=== PATIENT | male | born 2000 | race Caucasian/White ===

== ENCOUNTER 2024-12-13 12:53 | Emergency (ER) | payer OTHER, SELFPAY ==
[2024-12-13] VITALS (15 sets, daily range): BP systolic 119–133; BP diastolic 83–98; PULSE 81–115; TEMP 36.9; O2SAT 98–100; BMI 37.1
--- NOTE | 2024-12-13 13:02 | ECG_ITS ---
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
--- NOTE | 2024-12-13 13:02 | XR_ITS ---
[facility] [place] [id number] Patient Name: ALISSA MILAN MRN: [id number] date: 2000 Sex: M Assigned Patient Location: ED.MAIN Current Patient Location: ED.MAIN Accession/Order Number: [id number] Exam Date: 12/13/2024 13:35 Report Date: 12/13/2024 13:51 At the request of: OFELIA DRAPER MD Procedure: XR chest 1V Single view chest: CLINICAL HISTORY: heart racing COMPARISON: None FINDINGS: The heart is normal in size. The lungs are clear. The pulmonary vasculature is normal. Mediastinum and hilar regions are unremarkable. No pleural effusions are seen. Visualized bones are intact. XR/XR chest 1V IMPRESSION: NO ACUTE PROCESS. Impression dictated by: Gerardo Rudd Jr.OBrandon 12/13/2024 1:51 PM Dictation Location: [id number] Electronically authenticated by: [id number] Y Date: 12/13/2024 13:51
[2024-12-13 13:28] LABS: Hematocrit 49.2 % (42.0-54.0); Hemoglobin 16.9 g/dL (14.0-18.0); Immature Granulocytes Abs Auto 0.03 10^3/uL (0.00-0.03); Immature Granulocytes Pct Auto 0.4 % (0.0-0.5); Lymphocytes Absolute Auto 2.1 10^3/uL (1.2-3.8); Mean Corpuscular HGB Conc 34.3 g/dL (29.9-35.2); Mean Corpuscular Hemoglobin 29.2 pg (25.9-34.0); Mean Corpuscular Volume 85.1 fL (80.0-94.0); Platelet Count 330 10^3/uL (150-450); Red Blood Count 5.78 10^6/uL (4.70-6.10); White Blood Count 8.5 10^3/uL (4.0-11.0)
[2024-12-13 13:43] LABS: INR 0.97; Prothrombin Time 10.3 sec (9.0-11.6)
[2024-12-13] MEDS: 0.9 % SODIUM CHLORIDE 1,000 ML 1000 ML IV (13:45)
[2024-12-13 13:54] LABS: Alanine Aminotransferase 46 U/L (16-63); Albumin Globulin Ratio 1.1; Albumin Level 4.5 g/dL (3.4-5.0); Alkaline Phosphatase 74 U/L (46-116); Anion Gap 15.9; Aspartate Amino Transferase 23 U/L (15-37); Blood Urea Nitrogen 17.0 mg/dL (7.0-18.0); Calcium 9.4 mg/dL (8.5-10.1); Carbon Dioxide 25.9 mmol/L (21.0-32.0); Chloride 102 mmol/L (98-107); Estimated GFR (African America >60 (>=60 mL/min/1.73m^2); Estimated GFR (Non-African Ame >60 (>=60 mL/min/1.73m^2); Globulin 4.2 g/dL; Glucose 87 mg/dL (74-106); Magnesium 1.8 mg/dL (1.8-2.4); Potassium 3.8 mmol/L (3.5-5.1); Sodium 140 mmol/L (136-145); Total Protein 8.7 g/dL (6.4-8.2)
--- NOTE | 2024-12-13 14:15 | ED_ITS ---
HPI - Arrhythmia/Palpitations General Chief Complaint: Arrhythmia/Palpitations Stated Complaint: HEART PALPITATIONS Time Seen by Provider: 12/13/24 13:02 Source: patient Mode of arrival: walk-in History of Present Illness HPI narrative: The patient is coming to the ER with a complaint of feeling his heart racing since yesterday, was doing some yard work yesterday to his home and he admitted that he does not drink enough water usually. He mentioned that he started feeling his heart racing The patient does not feel his heart racing all the time but he sometimes feels an extra beat There is no nausea no vomiting no chest pain no abdominal pain he felt squeezing his heart when he was having the heart racing as he mentioned. The patient also has been going through a lot of stress at home apparently they are trying to sell the house that he was working on yesterday Related Data Home Medications ?Medication ?Instructions ?Recorded ?Confirmed No Known Home Medications 12/13/2405/08 Allergies Allergy/AdvReac Type Severity Reaction Status Date / Time shellfish derived Allergy Hives Verified 12/13/24 13:05 Sulfa (Sulfonamide Allergy Hives Verified 12/13/24 13:05 Antibiotics) Review of Systems ROS Status of ROS 10 or more systems reviewed and unremark able except as noted in history and below PFSH PFSH Social History Little interest or pleasure in doing things: not at all Feeling down, depressed, or hopeless: not at all Exam Narrative Exam Narrative: Nurses notes and vital signs reviewed and patient is not hypoxic. General: Well-appearing and in no apparent distress. Skin: Warm, dry, no pallor noted. No rash. Head: Normocephalic, atraumatic. Neck: Supple, non-tender. Eye: Pupils are equal, round and EOMI. No scleral icterus. Ears, Nose, Mouth, and Throat: TM are clear, no nasal mucosal hypertrophy. Oral mucosa is moist, no posterior oropharynx erythema, uvula is mid-line Cardiovascular: Regular Rate and Rhythm without murmur, gallop or rub. Respiratory: No accessory muscle use or respiratory distress. Lungs are clear to auscultation, no wheezing, rales or rhonchi Chest Wall: no tenderness Back: No midline thoracic or lumbar vertebral tenderness. No CVA tenderness Musculoskeletal: normal ROM, no calf or popliteal tenderness, no lower extremity edema/swelling GI: Abdomen is soft, non-distended. Normal bowel sounds. No masses appreciated. No tenderness to palpation. No rebound, guarding, or rigidity noted. Neurological: A&O x4. No cranial nerve dysfunction observed. No truncal ataxia. Moves all extremities. Sensation intact. Psychiatric: Cooperative and interactive. Normal mood and affect. Constitutional Vital Signs, click to edit/add: Last Vital Signs Temp 98.5 F 12/13/24 13:05 Pulse 97 H 12/13/24 13:05 Resp 18 12/13/24 13:05 BP 124/88 12/13/24 13:05 Pulse Ox 99 12/13/24 13:05 O2 Del Method Room Air 12/13/24 13:05 Course Vital Signs Vital signs: Vital Signs Temperature 98.5 F 12/13/24 13:05 Pulse Rate 97 H 12/13/24 13:05 Respiratory Rate 18 12/13/24 13:05 Blood Pressure 124/88 12/13/24 13:05 Pulse Oximetry 99 12/13/24 13:05 Oxygen Delivery Method Room Air 12/13/24 13:05 Temperature 98.5 F 12/13/24 13:05 Pulse Rate 97 H 12/13/24 13:05 Respiratory Rate 18 12/13/24 13:05 Blood Pressure 124/88 12/13/24 13:05 Pulse Oximetry 99 12/13/24 13:05 Oxygen Delivery Method Room Air 12/13/24 13:05 MDM - Arrhythmia/Palpitations MDM Narrative Medical decision making narrative: The patient EKG was showing sinus arrhythmia with heart rate of [address] elevation or depression Potassium, magnesium as well as the rest of the chemistry were within normal and the patient CBC is well The patient also had a negative troponin He is not a smoker and his presentation right now could be secondary to mild dehydration he was feeling much better after being treated with the IV fluid Patient instructed to rest for the next few days and to follow-up with his primary care doctor for further evaluation In case of repeated symptoms he is to come back to the ER Lab Data Labs: Lab Results 12/13/24 Range/Units 13:14 WBC 8.5 (4.0-11.0) 10^3/uL RBC 5.78 (4.70-6.10) 10^6/uL Hgb 16.9 (14.0-18.0) g/dL Hct 49.2 (42.0-54.0) % MCV 85.1 (80.0-94.0) fL MCH 29.2 (25.9-34.0) pg MCHC 34.3 (29.9-35.2) g/dL RDW 13.1 (11.0-15.0) % Plt Count 330 (150-450) 10^3/uL MPV 9.5 (9.5-13.5) fL Neut % (Auto) 66.9 (43.0-75.0) % Lymph % (Auto) 24.4 (20.5-60.0) % [place] % (Auto) 5.5 (1.7-12.0) % Eos % (Auto) 2.0 (0.9-7.0) % Baso % (Auto) 0.8 (0.2-2.0) % Neut # (Auto) 5.7 (1.4-6.5) 10^3/uL Lymph # (Auto) 2.1 (1.2-3.8) 10^3/uL [place] # (Auto) 0.5 (0.3-0.8) 10^3/uL Eos # (Auto) 0.2 (0.0-0.7) 10^3/uL Baso # (Auto) 0.1 (0.0-0.1) 10^3/uL Abs Immat Gran (auto) 0.03 (0.00-0.03) 10^3/uL Imm/Tot Granulo (auto) 0.4 (0.0-0.5) % PT 10.3 (9.0-11.6) sec INR 0.97 Sodium 140 (136-145) mmol/L Potassium 3.8 (3.5-5.1) mmol/L Chloride 102 (98-107) mmol/L Carbon Dioxide 25.9 (21.0-32.0) mmol/L Anion Gap 15.9 BUN 17.0 (7.0-18.0) mg/dL Creatinine 0.98 (0.70-1.30) mg/dL Est GFR ( Amer) >60 (>=60 mL/min/1.73m^2) Est GFR (Non-Af Amer) >60 (>=60 mL/min/1.73m^2) BUN/Creatinine Ratio 17.3 Glucose 87 (74-106) mg/dL Calcium 9.4 (8.5-10.1) mg/dL Magnesium 1.8 (1.8-2.4) mg/dL Total Bilirubin 0.9 (0.2-1.0) mg/dL AST 23 (15-37) U/L ALT 46 (16-63) U/L Alkaline Phosphatase 74 (46-116) U/L Troponin I High Sens <4.0 L (4.0-76.1) pg/mL Total Protein 8.7 H (6.4-8.2) g/dL Albumin 4.5 (3.4-5.0) g/dL Globulin 4.2 g/dL Albumin/Globulin Ratio 1.1 Discharge Plan Discharge Chief Complaint: Arrhythmia/Palpitations Clinical Impression: Palpitations Patient Disposition: Home, Self-Care Time of Disposition Decision: 14:22 Condition: Good Prescriptions / Home Meds: No Action No Known Home Medications Print Language: Malaysian Instructions: Heart Palpitations (ED) Referrals: LIANA ZUNIGA [Primary Care Provider, Family Practice] - 1 week
== END 2024-12-13 14:37 | disposition home or self-care (01) ==
PROVIDERS: Emergency Provider Emergency Medicine; PCP Family Medicine
DX: R00.2 Palpitations (principal)
CPT/HCPCS: 36415; 71045; 80053; 83735; 84484; 85025; 85610; 93005; 99285